=== PATIENT | male | born 1980 | race Caucasian/White ===

== ENCOUNTER 2017-03-15 09:14 | Emergency (ER) | payer BC, MEDICAID ==
[~2017-03-15] VITALS: Ht 188 cm; Wt 97.5 kg
[~2017-03-15 09:14] MED LIST: ALBUPOW26; ALPR0.5T PO; AMOX-263 PO; ENAL5TAB92 PO; FENO1TAB41; IBUP200T2 PO; METH-562; NOR10T; TRAM50TA2 PO
[2017-03-15 09:23] VITALS: BP 116/74
[2017-03-15] MEDS ORDERED: KETOROLAC TROMETH 60MG/2ML VIAL IM ONE (09:30)
[2017-03-15] MEDS ORDERED: LIDOCAINE 1% HCL (LOCAL ANESTH.) INJ 20ML MDV IJ ONE (10:00)
[2017-03-15] MEDS ORDERED: BACITRACIN TOP OINT 1 UD PKG TOP ONE (10:30)
[2017-03-15] MEDS ORDERED: TETANUS-DIPTH-ACEL PERTUSSIS 0.5ML SYRG IM ONE (10:30)
== END 2017-03-15 10:37 | disposition home or self-care (01) ==
LOC: ER 09:14
DX: S61.216A Laceration without foreign body of right little finger without damage to nail, initial encounter (principal); S61.212A Laceration without foreign body of right middle finger without damage to nail, initial encounter; S61.210A Laceration without foreign body of right index finger without damage to nail, initial encounter; J45.909 Unspecified asthma, uncomplicated; I10 Essential (primary) hypertension; Z88.1 Allergy status to other antibiotic agents; Z88.8 Allergy status to other drugs, medicaments and biological substances; W26.8XXA Contact with other sharp object(s), not elsewhere classified, initial encounter; Y93.89 Activity, other specified; Y99.8 Other external cause status; Y92.69 Other specified industrial and construction area as the place of occurrence of the external cause
CPT/HCPCS: 12002; 73130; 90471; 90715; 96372; 99284; J1885; J2001

== ENCOUNTER 2017-03-17 07:18 | Emergency (ER) | payer BC, MEDICAID ==
[~2017-03-17] VITALS: Ht 185.4 cm; Wt 96.6 kg
[2017-03-17 07:30] VITALS: BP 129/70
== END 2017-03-17 08:31 | disposition home or self-care (01) ==
LOC: ER 07:18
DX: S61.219D Laceration without foreign body of unspecified finger without damage to nail, subsequent encounter (principal); I10 Essential (primary) hypertension; J45.909 Unspecified asthma, uncomplicated; Z88.1 Allergy status to other antibiotic agents

== ENCOUNTER 2017-03-24 08:28 | Emergency (ER) | payer BC, MEDICAID ==
[~2017-03-24] VITALS: Ht 188 cm; Wt 104.3 kg
[2017-03-24 09:01] VITALS: BP 154/87
== END 2017-03-24 09:21 | disposition home or self-care (01) ==
LOC: ER 08:30
DX: S61.216D Laceration without foreign body of right little finger without damage to nail, subsequent encounter (principal)

== ENCOUNTER 2017-04-01 08:30 | Emergency (ER) | payer BC, MEDICAID ==
[~2017-04-01] VITALS: Ht 182.9 cm; Wt 97.5 kg
[2017-04-01 09:43] VITALS: BP 117/88
== END 2017-04-01 10:39 | disposition home or self-care (01) ==
LOC: ER 08:38
DX: L03.011 Cellulitis of right finger (principal); J45.909 Unspecified asthma, uncomplicated; I10 Essential (primary) hypertension; Z88.1 Allergy status to other antibiotic agents; Z79.899 Other long term (current) drug therapy
CPT/HCPCS: 29130

== ENCOUNTER 2018-03-05 15:44 | Emergency (ER) | payer BC, MEDICAID ==
[~2018-03-05] VITALS: Ht 182.9 cm; Wt 113.4 kg
[2018-03-05 15:48] VITALS: BP 151/85
[2018-03-05 16:48] LABS: Basophils # (auto) 0.1 uL; Basophils % (auto) 1.2 % (0.0-2.0); Eosinophils # (auto) 0.1 uL; Eosinophils % (auto) 1.7 % (0.0-7.0); Hematocrit 44.1 % (41.0-53.0); Hemoglobin 15.2 g/dL (13.5-17.5); Lymphocytes # (auto) 2.2 uL; Lymphocytes % (auto) 29.1 % (10.0-50.0); Mean Corpuscular Hemoglobin 31.5 pg (28.0-32.0); Mean Corpuscular Hgb Conc. 34.4 g/dL (32.0-36.0); Mean Corpuscular Volume 91.6 fL (80.0-100.0); Monocytes # (auto) 0.5 uL; Monocytes % (auto) 6.1 % (0.0-12.0); Neutrophils # (auto) 4.7 uL; Neutrophils % (auto) 61.9 % (37.0-80.0); Nucleated Red Blood Cells % 0.1 %; Platelet Count (auto) 297 10^3/uL (140-450); Red Blood Cells 4.82 10^6/uL (4.5-5.90); Red Cell Distribution Width 12.9 % (11.8-14.3); White Blood Cell 7.6 10^3/uL (4.4-10.8)
[2018-03-05 17:10] LABS: Alanine Aminotransferase 50 U/L (16-61); Albumin 4.1 g/dL (3.4-5.0); Alkaline Phosphatase 69 U/L (45-117); Anion Gap 6 (5-15); Aspartate Aminotransferase 30 U/L (15-37); BUN/Creatinine Ratio 9.3; Bilirubin, Total 0.3 mg/dL (0.2-1.0); Blood Urea Nitrogen 10 mg/dL (7-18); Calcium 9.2 mg/dL (8.5-10.1); Carbon Dioxide 29 mmol/L (21-32); Chloride 103 mmol/L (98-107); GFR African American 101 mL/min; GFR Non-African American 84 mL/min; Glucose 107 mg/dL (74-106); Magnesium 2.4 mg/dL (1.6-2.6); Potassium 4.5 mmol/L (3.5-5.1); Sodium 138 mmol/L (136-145); Total Protein 8.2 g/dL (6.4-8.2)
== END 2018-03-05 19:06 | disposition home or self-care (01) ==
LOC: ER 15:54
DX: I10 Essential (primary) hypertension (principal); E11.9 Type 2 diabetes mellitus without complications; E07.89 Other specified disorders of thyroid; F17.210 Nicotine dependence, cigarettes, uncomplicated; Z88.0 Allergy status to penicillin; Z88.8 Allergy status to other drugs, medicaments and biological substances
CPT/HCPCS: 36415; 71046; 80053; 83735; 84484; 85025; 93005